=== PATIENT | female | born 1960 | race Caucasian/White ===

== ENCOUNTER 2016-07-09 01:45 | Emergency (ER) | payer MEDICARE, MEDICAID ==
[2016-07-09] MEDS ORDERED: Lidocaine 1% with EPINEPHrine 1:100,000 20 ML MDV INFILT ONE (01:58)
[2016-07-09 03:44] VITALS: BP 126/77
--- NOTE | 2016-07-09 08:08 | ER ---
Date of Service: 07/09/2016 SUBJECTIVE: Aracelis presents to the emergency room after a fall. She is a resident at [facility] here in [place]. She has a history of chronic brain injury and does have difficulties with her gait. Staff states that she tripped and fell backwards striking the back of her head. Staff was unable to get the bleeding stopped. The patient had no loss of consciousness according to [facility] staff. The patient is not complaining of any headache or neck pain. PAST MEDICAL HISTORY: 1. Chronic brain injury. 2. Coronary artery disease. 3. Dyslipidemia. 4. Seizure disorder. 5. Migraine headaches. MEDICATIONS: 1. Trazodone 50 mg at bedtime. 2. Keppra. 3. Zoloft. 4. Imitrex. 5. Felbamate. 6. Aricept. 7. Clopidogrel. 8. Carvedilol. 9. Calcium plus D. 10.Aspirin. ALLERGIES: To carbamazepine and penicillin. REVIEW OF SYSTEMS: General: No fever or chills. HEENT: Again sustained a laceration to the occipital portion of her head. Denies any headache. No blurred vision. She has been experiencing some sinus congestion for several weeks. Respiratory: No shortness of breath. Cardiac: Denies any substernal chest pain. No jaw, arm, neck, or back pain. Gastrointestinal: No nausea, vomiting, or diarrhea. No melena, hematochezia, or hematemesis. : Denies any dysuria. Musculoskeletal: No myalgias or arthralgias. Neurologic: No fainting, blackouts, or lightheadedness. No seizure activity since this event. PHYSICAL EXAMINATION: General: This is a 56-year-old female patient, who is in no acute distress. Vital Signs: Blood pressure is 132/90, pulse rate 52, temperature is 35.5, respiratory rate 16, O2 saturations 100%. Skin: Warm, pink, and dry. HEENT: Head is normocephalic. She does have a 2 cm laceration to the occipital portion of her head. No obvious gross bony deformity underlying the laceration. Eyes, PERRLA. Extraocular movements are intact. No facial trauma noted. She has no discomfort on palpation of her frontal or maxillary sinuses. Spine: No midline C-spine, thoracic, or lumbar discomfort noted on palpation. Lungs: Clear to auscultation. Heart: Regular rate and rhythm. Musculoskeletal: No myalgias or arthralgias. Pelvis: Stable. Extremities: No extremity trauma noted. Neurologic: She is alert and oriented and answers all questions appropriately. Her speech is fluent. She was able to stand and transfer from a wheelchair to the bed and back to her wheelchair. RADIOGRAPHIC DATA: CT scan of the patient's brain and cervical spine were obtained. There was no evidence of any acute posttraumatic pathology. She did have evidence of acute left maxillary sinusitis and evidence of encephalomalacia from her chronic brain injury. No other findings were reported. Similarly, her cervical spine CT scan of was negative for acute pathology as well. EMERGENCY ROOM COURSE: The laceration was cleansed with Shur-Clens and normal saline. The patient's head was prepped and draped in usual sterile fashion. Chlorhexidine was used to further cleanse the laceration and a total of 5 mL of 1% lidocaine with epinephrine was used to anesthetize the laceration. A total of 3 interrupted 4-0 nylon sutures was used to close the laceration. Excellent wound approximation and hemostasis was achieved. The patient tolerated this well. She remained stable in my care in the emergency. ASSESSMENT: 1. A 2 cm laceration to occipital portion of the head status post fall. 2. Possible closed head injury. 3. Acute left maxillary sinusitis. PLAN: The patient will be discharged. Sutures are out in 10 days. Should follow up in the clinic sooner if there is any redness, swelling, or discharge from the laceration site. Also return if she develops increased seizure activity or if she develops any vomiting, difficulties with speech, gait or ambulation or other worrisome focal neurologic symptoms. Begin cefdinir 300 mg p.o. b.i.d. for 10 days for her acute sinusitis. Follow up in the clinic again for suture removal and recheck in 10 days. All questions were answered. CARMENK: 07/09/2016 03:37:06 MODL: 07/09/2016 08:04:49 /[id number]
== END 2016-07-09 03:35 | disposition home or self-care (01) ==
LOC: VM.ED 01:45
DX: S01.01XA Laceration without foreign body of scalp, initial encounter (principal); J01.00 Acute maxillary sinusitis, unspecified; E78.5 Hyperlipidemia, unspecified; G40.909 Epilepsy, unspecified, not intractable, without status epilepticus; Z88.0 Allergy status to penicillin; W19.XXXA Unspecified fall, initial encounter
CPT/HCPCS: 12001; 70450; 72125; 99283-GF-25; 99284

== ENCOUNTER 2016-08-04 11:36 | Emergency (ER) | payer MEDICARE, MEDICAID ==
[2016-08-04 12:00] VITALS: BP 140/94
[2016-08-04] MEDS ORDERED: Sodium Chloride 0.9% 10 ML Syringe FLUSH PRN (12:11)
[2016-08-04 12:56] LABS: CHLORIDE,CL 103 mmol/L (98-107); SODIUM,NA 141 mmol/L (136-145)
[2016-08-04] MEDS ORDERED: cefTRIAXone 2 GM Vial IVPUSH ONE (13:35)
[2016-08-04] MEDS ORDERED: Take Home: Sulfamethoxazole/Trimethoprim 800-160 MG Tab, 2 Tab Pack PO ONE (13:46)
--- NOTE | 2016-08-06 09:10 | ER ---
Date of Service: SUBJECTIVE: Aracelis presents to the emergency room with erythema and swelling to the right hand. The patient has been experiencing this for several days. Staff states the patient has not been experiencing any fever or chills. The patient is a resident at the [facility]. PAST MEDICAL HISTORY: 1. Coronary artery disease. 2. Colon polyp. 3. Early menopause. 4. Previous ankle fracture. 5. Seizure disorder. 6. Depression. MEDICATIONS: 1. Trazodone. 2. Levetiracetam. 3. Zoloft. 4. Imitrex. 5. Felbamate. 6. Aricept. 7. Clopidogrel. 8. Carvedilol. 9. Vitamin D3. 10.Aspirin. ALLERGIES: To carbamazepine and penicillin. REVIEW OF SYSTEMS: Unobtainable due to the patient's mental status. PHYSICAL EXAMINATION: General: This is a 56-year-old female patient, who is in no acute distress. Vital Signs: Please see nurse's notes. Skin: Warm, pink, and dry. Evaluation of the patient's right hand reveals erythema overlying the metacarpophalangeal joints. The second and third metacarpophalangeal joint of the left hand. There is some swelling to the palm of the hand. No obvious discharge noted. No culturable lesions noted. The CBC was not obtained. HOSPITAL COURSE: IV access was established. The patient was given 2 g of Rocephin IM. IV was kept in place, and the patient was setup as an outpatient for repeat dosing of the Rocephin. ASSESSMENT: Cellulitis to right hand. PLAN: The patient was also started on Bactrim DS 1 twice daily for 10 days. Again return in 24 hours for another 2 g of Rocephin. We will evaluate the infection at that time. The cellulitis was outlined in ink. Followup in the clinic in the next 7 to 10 days. All questions were answered. MWK: 08/06/2016 05:49:43 MODL: 08/06/2016 08:51:24 /[id number]
== END 2016-08-04 14:05 ==
LOC: VM.ED 11:36
DX: L03.113 Cellulitis of right upper limb (principal); I25.10 Atherosclerotic heart disease of native coronary artery without angina pectoris; F32.9 Major depressive disorder, single episode, unspecified; Z88.0 Allergy status to penicillin; Z88.8 Allergy status to other drugs, medicaments and biological substances
CPT/HCPCS: 80048; 84550; 85025; 86140; 96374; 99283; A9270; J0696; J7050

== ENCOUNTER 2017-03-01 08:49 | Emergency (ER) | payer MEDICARE, MEDICAID ==
[2017-03-01] MEDS ORDERED: Aspirin 81 MG Tab.Chew PO SCH (09:15)
[2017-03-01] MEDS ORDERED: Sodium Chloride 0.9% 500 ML IV ONE (09:18)
[2017-03-01] MEDS ORDERED: DOPamine/Dextrose 5%-Water 400 MG/250 ML BAG IV SCH (09:30)
--- NOTE | 2017-03-01 09:47 | EDM.PDOC ---
ED HPI GENERAL MEDICAL PROBLEM - General Chief Complaint: Chest Pain Stated Complaint: ER Time Seen by Provider: 03/01/17 08:56 Source of Information: Reports: EMS, [facility] Records (pt is from [facility]) History Limitations: Reports: Altered Mental Status - History of Present Illness INITIAL COMMENTS - FREE TEXT/NARRATIVE: [facility] is noted that she had a seizure yesterday and a seizure this morning. Which is normal for her she's had a seizure disorder and has managed medically by that. She was found to be hypotensive at the [facility]. Arousable he is unknown at this point. They contacted EMS emergent as soon as he could not get an accurate blood pressure. EMS was on scene and was having difficulty palpating an accurate blood pressures well. It was noted that when he transferred her over from her bed to the rney that the patient did go bradycardic and remained hypotensive. Patient is noted also to have had diaphoresis along with pale clammy skin. Twelve-lead EKG was completed by EMS in IV site was administered prior to arrival to our facility. Patient is a DNR times to DO NOT INTUBATE DO NOT RESUSCITATE with defibrillation however they do want medical management medications provided Onset: Today Severity: Severe Associated Symptoms: Reports: No Other Symptoms Treatments DIRECTOR HOME: Reports: EKG - Related Data Allergies Allergy/AdvReac Type Severity Reaction Status Date / Time carbamazepine [From Tegretol] Allergy Cannot Verified 08/04/16 12:02 Remember Penicillins Allergy Cannot Verified 08/04/16 12:02 Remember Home Meds: Home Meds Aspirin [Aspir-Low] 2 tab PO DAILY 10/23/14 [History] Calcium Carbonate/Vitamin D3 [Calcium 600 + D Tablet] 1 each PO DAILY 10/23/14 [ History] Carvedilol [Carvedilol] 0.5 tab PO BID 10/23/14 [History] Clopidogrel Bisulfate [Clopidogrel] 75 mg PO DAILY 10/23/14 [History] Donepezil [Aricept] 5 mg PO BEDTIME 10/23/14 [History] Felbamate [Felbamate] 2.5 tab PO BID 10/23/14 [History] SUMAtriptan [Imitrex] 25 mg PO ASDIRECTED PRN 10/23/14 [History] Sertraline [Zoloft] 200 mg PO DAILY 10/23/14 [History] levETIRAcetam [Levetiracetam] 1,000 mg PO BID 10/23/14 [History] levETIRAcetam [Levetiracetam] 750 mg PO BID 10/23/14 [History] traZODone 50 mg PO BEDTIME 10/23/14 [History] Past Medical History Other HEENT History: presbyopia Cardiovascular History: Reports: CAD, [place] Other Gastrointestinal History: adenomatous colon polyp Other OB/BYN History: early menopause Other Musculoskeletal History: left knee injury, ataxiabimalleolar ankle fracture, spontaneous ruputre of flexor tendon,cellulitis of elbow Neurological History: Reports: Head Trauma, Seizure Other Neuro History: memory loss Psychiatric History: Reports: Depression Social & Family History - Tobacco Use Smoking Status *Q: Unknown Ever Smoked - Recreational Drug Use Recreational Drug Use: No ED ROS GENERAL - Review of Systems Review Of Systems: See Below Constitutional: Reports: No Symptoms HEENT: Reports: No Symptoms Respiratory: Reports: No Symptoms Cardiovascular: Reports: No Symptoms Endocrine: Reports: No Symptoms GI/Abdominal: Reports: No Symptoms : Reports: No Symptoms Musculoskeletal: Reports: No Symptoms Skin: Reports: No Symptoms Neurological: Reports: Seizure (had a seizure last night and again this am lasting last then 2 mins ) Psychiatric: Reports: No Symptoms Hematologic/Lymphatic: Reports: No Symptoms ED EXAM, GENERAL - Physical Exam Exam: See Below Exam Limited By: No Limitations General Appearance: Moderate Distress Head: Atraumatic, Normocephalic Neck: Normal Inspection Respiratory/Chest: No Respiratory Distress, No Accessory Muscle Use, Chest Non- Tender Cardiovascular: Bradycardia, Irregularly Irregular GI/Abdominal: Normal Bowel Sounds, Soft, No Distention, No Abnormal Bruit Back Exam: Normal Inspection Extremities: Pallor Skin Exam: Cool, Pallor EKG INTERPRETATION EKG Date: 03/01/17 Course - Vital Signs Last Recorded V/S: Last Vital Signs Temp 35.6 C 03/01/17 08:49 Pulse 63 03/01/17 09:17 Resp 16 03/01/17 08:49 BP 67/44 L 03/01/17 09:17 Pulse Ox 96 03/01/17 09:17 - Orders/Labs/Meds Orders: Active Orders 24 hr Category Date Time Status EKG Documentation Completion [RC] STAT Care 03/01/17 09:07 Ordered Chest 1V Frontal [CR] Stat Exams 03/01/17 09:10 Ordered CKMB [REF] Stat Lab 03/01/17 09:07 Ordered COMPREHENSIVE METABOLIC PN,CMP [CHEM] Stat Lab 03/01/17 09:07 Ordered D Dimer [D-DIMER QUANTITATIVE] [COAG] Stat Lab 03/01/17 09:10 Ordered TROPONIN I [CHEM] Stat Lab 03/01/17 09:07 Ordered UA W/MICROSCOPIC [URIN] Stat Lab 03/01/17 09:07 Uncollected Aspirin Med 03/01/17 09:15 Active 162 mg PO WITHBREAKFAST DOPamine/Dextrose 5%-Water [DOPamine in D5W 400 MG/250 Med 03/01/17 09:30 Ordered ML] 400 mg in 250 ml IV TITRATE Sodium Chloride 0.9% @ 500 MLS/HR(500ml) Med 03/01/17 09:18 Ordered Sodium Chloride 0.9% [Normal Saline] 500 ml IV ONETIME Medication Orders Aspirin (Aspirin) 162 mg PO WITHBREAKFAST GRACE Last Admin: 03/01/17 09:15 Dose: 162 mg Sodium Chloride (Normal Saline) 500 mls @ 500 mls/hr IV ONETIME ONE Stop: 03/01/17 10:17 Last Admin: 03/01/17 08:49 Dose: 500 mls/hr Dopamine HCl/Dextrose (Dopamine In D5w 400 Mg/250 Ml) 400 mg in 250 mls @ 5.25 mls/hr IV TITRATE GRACE; 2 MCG/KG/MIN PRN Reason: Protocol Last Admin: 03/01/17 09:45 Dose: 2 mcg/kg/min, 5.25 mls/hr Labs: Laboratory Tests 03/01/17 03/01/17 03/01/17 Range/Units 09:25 09:25 09:32 WBC 10.8 H (4.0-10.0) x10^3/uL RBC 3.29 L (4.00-5.50) x10^6/uL Hgb 10.3 L D (12.0-16.0) g/dL Hct 32.8 L (33.0-47.0) % MCV 99.7 H D (78.0-93.0) fL MCH 31.3 (26.0-32.0) pg MCHC 31.4 L (32.0-36.0) g/dL RDW Coeff of Jose 12.1 (10.0-15.0) % Plt Count 207 (130-400) x10^3/uL Add Manual Diff Yes Neutrophils % (Manual) 81 H (50-80) % Band Neutrophils % 6 (0-6) % Lymphocytes % (Manual) 12 L (25-50) % Monocytes % (Manual) 1 L (2-11) % Platelet Estimate Adequate Lactic Acid 3.8 H (0.4-2.0) mmol/L POC Troponin I 0.02 (0.00-0.08) ng/mL Meds: Medications Generic Name Dose Route Start Last Admin Trade Name Freq PRN Reason Stop Dose Admin Aspirin 162 mg 03/01/17 09:15 03/01/17 09:15 Aspirin PO 162 mg WITHBREAKFAST GRACE Administration Sodium Chloride 500 mls @ 500 mls/hr 03/01/17 09:18 03/01/17 08:49 Normal Saline IV 03/01/17 10: 500 mls/hr ONETIME ONE Administration Dopamine HCl/Dextrose 400 mg in 250 mls @ 5.25 mls/hr 03/01/17 09:30 09:45 Dopamine In D5w 400 Mg/250 Ml IV 2 mcg/kg/min TITRATE GRACE 5.25 mls/hr Protocol Administration 2 MCG/KG/MIN Departure - Departure Time of Disposition: 09:50 Disposition: DC/Tfer to Other 70 Condition: Poor Clinical Impression: Bradycardia Hypotension Qualifiers: Hypotension type: unspecified hypotension type Qualified Code(s): I95.9 - Hypotension, unspecified - Discharge Information Referrals: Hussein Bond MD [Primary Care Provider] - Forms: ED Department Discharge, Interfacility Transfer EMTSELAM ED Summary Discharge - My Orders Last 24 Hours: My Active Orders 03/01/17 09:07 EKG Documentation Completion [RC] STAT CKMB [REF] Stat COMPREHENSIVE METABOLIC PN,CMP [CHEM] Stat TROPONIN I [CHEM] Stat UA W/MICROSCOPIC [URIN] Stat 03/01/17 09:10 Chest 1V Frontal [CR] Stat D Dimer [D-DIMER QUANTITATIVE] [COAG] Stat 03/01/17 09:15 Aspirin 162 mg PO WITHBREAKFAST 03/01/17 09:18 Sodium Chloride 0.9% @ 500 MLS/HR(500ml) Sodium Chloride 0.9% [Normal Saline] 500 ml IV ONETIME 03/01/17 09:30 DOPamine/Dextrose 5%-Water [DOPamine in D5W 400 MG/250 ML] 400 mg in 250 ml IV TITRATE - Assessment/Plan Last 24 Hours: My Active Orders 03/01/17 09:07 EKG Documentation Completion [RC] STAT CKMB [REF] Stat COMPREHENSIVE METABOLIC PN,CMP [CHEM] Stat TROPONIN I [CHEM] Stat UA W/MICROSCOPIC [URIN] Stat 03/01/17 09:10 Chest 1V Frontal [CR] Stat D Dimer [D-DIMER QUANTITATIVE] [COAG] Stat 03/01/17 09:15 Aspirin 162 mg PO WITHBREAKFAST 03/01/17 09:18 Sodium Chloride 0.9% @ 500 MLS/HR(500ml) Sodium Chloride 0.9% [Normal Saline] 500 ml IV ONETIME 03/01/17 09:30 DOPamine/Dextrose 5%-Water [DOPamine in D5W 400 MG/250 ML] 400 mg in 250 ml IV TITRATE
[2017-03-01 09:52] VITALS: BP 67/44
[2017-03-01 09:56] LABS: CHLORIDE,CL 109 mmol/L (98-107); SODIUM,NA 145 mmol/L (136-145)
== END 2017-03-01 10:00 | disposition other institution (70) ==
LOC: VM.ED 08:49
DX: I95.9 Hypotension, unspecified (principal); R00.1 Bradycardia, unspecified; Z88.0 Allergy status to penicillin; Z88.8 Allergy status to other drugs, medicaments and biological substances; Z79.82 Long term (current) use of aspirin; Z79.899 Other long term (current) drug therapy
CPT/HCPCS: 36415; 71010; 80053; 82550; 82553; 83605; 84484; 85025; 85379; 93005; 96361; 96374; 99285; A9270; J1265; J7040; 99284-GF

== ENCOUNTER 2017-08-04 12:27 | Observation (INO) | payer MEDICARE, MEDICAID ==
[2017-08-04] MEDS ORDERED: Sodium Chloride 0.9% 10 ML Syringe FLUSH PRN (12:35)
[2017-08-04] MEDS ORDERED: Iopamidol 612 MG/ML 100 ML Bottle IVPUSH ONE (12:59)
[2017-08-04 13:16] LABS: CHLORIDE,CL 104 mmol/L (98-107); SODIUM,NA 140 mmol/L (136-145)
--- NOTE | 2017-08-04 13:38 | EDM.PDOC ---
ED HPI GENERAL MEDICAL PROBLEM - General Chief Complaint: General Stated Complaint: Abd Pain; Left Rib Pain; Diaphoresis; feeling pale Time Seen by Provider: 08/04/17 12:28 Source of Information: Reports: Patient, Family, RN, RN Notes Reviewed History Limitations: Reports: No Limitations - History of Present Illness INITIAL COMMENTS - FREE TEXT/NARRATIVE: Patient is brought to the emergency room at [facility] complaining of fast heart rate, left upper abdominal pain/rib pain, diaphoresis. History is obtained from [facility] staff and from patient. Difficult history as patient and staff accounts seem to differ. Patient was witnessed having diaphoresis and looking pale. staff member took the patients pulse and states "it was going really fast." No chest pain. No SOB. Onset: Today Left Back Pain Score (Numeric/FACES): 10 - Related Data Allergies Allergy/AdvReac Type Severity Reaction Status Date / Time carbamazepine [From Tegretol] Allergy Cannot Verified 08/04/17 13:10 Remember Penicillins Allergy Cannot Verified 08/04/17 13:10 Remember Home Meds: Home Meds Donepezil [Aricept] 5 mg PO BEDTIME 10/23/14 [History] Felbamate 1,500 mg PO BID 10/23/14 [History] Sertraline [Zoloft] 200 mg PO DAILY 10/23/14 [History] levETIRAcetam [Levetiracetam] 2,000 mg PO BEDTIME 10/23/14 [History] traZODone 50 mg PO BEDTIME 10/23/14 [History] Albuterol/Ipratropium [DuoNeb 3.0-0.5 MG/3 ML] 3 ml NEB QID PRN 03/19/17 [ History] Pantoprazole [ProTONIX] 40 mg PO BIDAC 03/19/17 [History] Phenytoin Sodium Extended [Dilantin] 100 mg PO DAILY 03/19/17 [History] Sennosides/Docusate Sodium [Senna-Docusate Sodium] 1 tab PO BID 03/19/17 [ History] levETIRAcetam [Levetiracetam] 1,750 mg PO DAILY 03/19/17 [History] Acetaminophen 650 mg PO Q4H PRN 04/23/17 [History] Aspirin [Halfprin] 81 mg PO DAILY 04/23/17 [History] Bisacodyl 10 mg RC DAILY PRN 04/23/17 [History] Calcium Carbonate/Vitamin D3 [Calcium 600 + Vit D 400 Softgl] 1 each PO DAILY [History] Carvedilol 3.125 mg PO BID 04/23/17 [History] Potassium Chloride [Klor-Con M20] 20 meq PO DAILY 04/23/17 [History] Aspirin [Halfprin] 81 mg PO DAILY 08/04/17 [History] Past Medical History HEENT History: Reports: Cataract, Other (See Below) Other HEENT History: presbyopia, entropion eyelid, myopia Cardiovascular History: Reports: CAD, [place] Gastrointestinal History: Reports: Other (See Below) Other Gastrointestinal History: liver failure, adenomatous colon polyp Genitourinary History: Reports: Other (See Below) Other Genitourinary History: renal injury Other OB/BYN History: early menopause Musculoskeletal History: Reports: Other (See Below) Other Musculoskeletal History: left knee injury, ataxia, bimalleolar ankle fracture, spontaneous ruputre of flexor tendon,cellulitis of elbow, osteopenia Neurological History: Reports: Head Trauma, Migraines, Seizure Other Neuro History: memory loss Psychiatric History: Reports: Depression - Past Surgical History HEENT Surgical History: Reports: Other (See Below) Other HEENT Surgeries/Procedures: ecteopion entropion Cardiovascular Surgical History: Reports: Other (See Below) Other Cardiovascular Surgeries/Procedures: percutaneous coronary intervention cath GI Surgical History: Reports: None Female Surgical History: Reports: None Musculoskeletal Surgical History: Reports: Other (See Below) Other Musculoskeletal Surgeries/Procedures:: fx repair, ligament repair Social & Family History - Family History Family Medical History: Noncontributory - Tobacco Use Smoking Status *Q: Never Smoker Second Hand Smoke Exposure: No - Caffeine Use Caffeine Use: Reports: Coffee - Recreational Drug Use Recreational Drug Use: No ED ROS GENERAL - Review of Systems Review Of Systems: See Below Constitutional: Reports: Diaphoresis. Denies: Fever, Chills Respiratory: Denies: Shortness of Breath, Cough Cardiovascular: Denies: Chest Pain, Palpitations GI/Abdominal: Reports: Abdominal Pain. Denies: Diarrhea, Nausea, Vomiting Musculoskeletal: Reports: Muscle Pain (Left lateral rib pain) Skin: Reports: No Symptoms Neurological: Reports: No Symptoms ED EXAM, GENERAL - Physical Exam Exam: See Below Exam Limited By: No Limitations General Appearance: Alert, No Apparent Distress Respiratory/Chest: No Respiratory Distress, Lungs Clear, Normal Breath Sounds Cardiovascular: No Edema, No Murmur, Tachycardia Peripheral Pulses: 2+: Radial (L), Radial (R) GI/Abdominal: Soft, Tender (LUQ), Abnormal Bowel Sounds (Hypoactive) Back Exam: Normal Inspection Neurological: Alert Skin Exam: Warm, Dry, Intact, Normal Color Course - Vital Signs Last Recorded V/S: Last Vital Signs Temp 35.7 C 08/04/17 12:30 Pulse 96 08/04/17 12:30 Resp 20 08/04/17 12:30 BP 109/79 08/04/17 12:30 Pulse Ox 100 08/04/17 12:30 - Orders/Labs/Meds Orders: Active Orders 24 hr Category Date Time Status Admission Status [Patient Status] [ADT] Routine ADT 08/04/17 13:57 Ordered EKG 12 Lead [EKG Documentation Completion] [RC] STAT Care 08/04/17 12:33 Active Chest Abdomen Pelvis w Cont [CT] Stat Exams 08/04/17 12:35 Taken UA W/MICROSCOPIC [URIN] Stat Lab 08/04/17 12:34 Received Sodium Chloride 0.9% [Saline Flush] Med 08/04/17 12:35 Active 10 ml FLUSH ASDIRECTED PRN Peripheral IV Insertion Adult [OM.PC] Routine Oth 08/04/17 12:35 Ordered Medication Orders Sodium Chloride (Saline Flush) 10 ml FLUSH ASDIRECTED PRN PRN Reason: Keep Vein Open Labs: Laboratory Tests 08/04/17 08/04/17 08/04/17 Range/Units 12:45 12:45 12:45 WBC 3.9 L (4.0-10.0) x10^3/uL RBC 4.59 (4.00-5.50) x10^6/uL Hgb 11.6 L D (12.0-16.0) g/dL Hct 37.7 (33.0-47.0) % MCV 82.1 (78.0-93.0) fL MCH 25.3 L (26.0-32.0) pg MCHC 30.8 L (32.0-36.0) g/dL RDW Coeff of Jose 19.1 H (10.0-15.0) % Plt Count 441 H D (130-400) x10^3/uL Add Manual Diff Yes Neutrophils % (Manual) 63 (50-80) % Lymphocytes % (Manual) 23 L (25-50) % Monocytes % (Manual) 13 H (2-11) % Basophils % (Manual) 1 (0-1) % Dohle Bodies Few Platelet Estimate Increased H Giant Platelets Occasional H Anisocytosis 3+ marked H Microcytosis 1+ slight H Sodium 140 (136-145) mmol/L Potassium 4.3 (3.5-5.1) mmol/L Chloride 104 (98-107) mmol/L Carbon Dioxide 27 (21-32) mmol/L BUN 19 H (7-18) mg/dL Creatinine 0.8 (0.55-1.02) mg/dL Est Cr Clr Drug Dosing 66.19 mL/min Estimated GFR (MDRD) > 60 Glucose 141 H (74-106) mg/dL Lactic Acid 1.3 (0.4-2.0) mmol/L Calcium 8.7 (8.5-10.1) mg/dL Corrected Calcium 9.18 (8.5-10.1) mg/dL Total Bilirubin 0.4 (0.2-1.0) mg/dL AST 24 (15-37) U/L ALT 23 (14-59) U/L Alkaline Phosphatase 165 H (46-116) U/L Creatine Kinase 31 (26-192) U/L Troponin I 0.027 (<=0.056) ng/mL C-Reactive Protein 0.9 (<=0.9) mg/dL Total Protein 7.6 (6.4-8.2) g/dL Albumin 3.4 (3.4-5.0) g/dL Globulin 4.2 Albumin/Globulin Ratio 0.81 Amylase 57 (25-115) U/L Lipase 162 (73-393) U/L Meds: Medications Generic Name Dose Route Start Last Admin Trade Name Freq PRN Reason Stop Dose Admin Sodium Chloride 10 ml 08/04/17 12:35 Saline Flush FLUSH ASDIRECTED PRN Keep Vein Open Discontinued Medications Generic Name Dose Route Start Last Admin Trade Name Freq PRN Reason Stop Dose Admin Iopamidol 100 ml 08/04/17 12:59 08/04/17 13:41 Isovue-300 (61%) IVPUSH 08/04/17 13:00 100 ml ONETIME ONE Administration Departure - Departure Time of Disposition: 14:00 Disposition: Refer to Observation Condition: Good Clinical Impression: Tachycardia, Dehydration Abdominal pain Qualifiers: Abdominal location: left upper quadrant Qualified Code(s): R10.12 - Left upper quadrant pain - Discharge Information - Problem List Review Problem List Initiated/Reviewed/Updated: Yes - My Orders Last 24 Hours: My Active Orders 08/04/17 12:33 EKG 12 Lead [EKG Documentation Completion] [RC] STAT 08/04/17 12:34 UA W/MICROSCOPIC [URIN] Stat 08/04/17 12:35 Chest Abdomen Pelvis w Cont [CT] Stat Sodium Chloride 0.9% [Saline Flush] 10 ml FLUSH ASDIRECTED PRN Peripheral IV Insertion Adult [OM.PC] Routine 08/04/17 13:57 Admission Status [Patient Status] [ADT] Routine - Assessment/Plan Last 24 Hours: My Active Orders 08/04/17 12:33 EKG 12 Lead [EKG Documentation Completion] [RC] STAT 08/04/17 12:34 UA W/MICROSCOPIC [URIN] Stat 08/04/17 12:35 Chest Abdomen Pelvis w Cont [CT] Stat Sodium Chloride 0.9% [Saline Flush] 10 ml FLUSH ASDIRECTED PRN Peripheral IV Insertion Adult [OM.PC] Routine 08/04/17 13:57 Admission Status [Patient Status] [ADT] Routine Assessment:: Tachycardia Abdominal Pain Dehydration Plan: Patient will be admitted to the observation unit for tachycardia, abdominal pain , dehydration. I do not anticipate the patient will stay greater than 48 hours. I would like to just observe the patient to make sure that her cardiac rhythm is okay. I do anticipate a discharge home tomorrow. Awaiting CT results at the time of this admission.
[2017-08-04] MEDS: Lactated Ringers 1,000 ML IV SCH (15:05)
[2017-08-04] MEDS ORDERED: Albuterol/Ipratropium 3.0-0.5 MG/3 ML Neb Soln INH PRN (17:30)
[2017-08-04] MEDS: FELBAMATE 600 MG PO SCH (19:49)
[2017-08-04] MEDS ORDERED: Phenytoin 100 MG Cap.ER PO SCH (20:00)
[2017-08-04] MEDS ORDERED: levETIRAcetam 500 MG Tab PO SCH (20:00)
[2017-08-04] MEDS ORDERED: Donepezil 5 MG Tab PO SCH (20:00)
[2017-08-04] MEDS ORDERED: traZODone 50 MG Tab PO SCH (20:00)
[2017-08-05] MEDS: Lactated Ringers 1,000 ML IV SCH (01:03)
[2017-08-05] MEDS ORDERED: Pantoprazole 40 MG Tab.CR PO SCH (07:00)
[2017-08-05 07:18] LABS: CHLORIDE,CL 106 mmol/L (98-107); SODIUM,NA 142 mmol/L (136-145)
[2017-08-05] MEDS: FELBAMATE 600 MG PO SCH (07:24)
--- NOTE | 2017-08-05 07:38 | PCM.DCSUM1 ---
Discharge Summary - Hospital Course HPI Initial Comments: Patient is brought to the emergency room at [facility] last evening complaining of fast heart rate, left upper abdominal pain/rib pain, diaphoresis. History is obtained from Retirement staff and from patient. Difficult history as patient and staff accounts seem to differ. Patient was witnessed having diaphoresis and looking pale. staff member took the patients pulse and states "it was going really fast." No chest pain. No SOB. Patient underwent a CT of the Chest, Abd/Pelvis, which was unremarkable for any acute pathology. Patient was admitted for cardiac monitoring for any arrhythmias. - Discharge Data Discharge Date: 08/05/17 Discharge Disposition: Home, Self-Care 01 Condition: Good - Patient Summary/Data Operative Procedure(s) Performed: None Consults: None Labs Pending at D/C: None Recommended Follow-up Testing/Procedures: None Hospital Course: Patient remained hemodynamically stable during her hospital stay. Telemetry remained stable with out any tachycardia or arrhythmia's. No issues with urination or BM's. Patient tolerating diet ok. No pain at discharge. - Patient Instructions Diet: Heart Healthy Diet Activity: Rest and Relax Today Driving: Do Not Drive Showering/Bathing: May Shower Notify Provider of: Fever, Increased Pain, Nausea and/or Vomiting - Discharge Plan Home Medications: Home Meds Donepezil [Aricept] 5 mg PO BEDTIME 10/23/14 [History] Felbamate 1,500 mg PO BID 10/23/14 [History] Sertraline [Zoloft] 2 tab PO DAILY 10/23/14 [History] traZODone 50 mg PO BEDTIME 10/23/14 [History] Albuterol/Ipratropium [DuoNeb 3.0-0.5 MG/3 ML] 3 ml NEB QID PRN 03/19/17 [ History] Pantoprazole [ProTONIX] 40 mg PO BIDAC 03/19/17 [History] Phenytoin Sodium Extended [Dilantin] 100 mg PO BEDTIME 03/19/17 [History] Sennosides/Docusate Sodium [Senna-Docusate Sodium] 1 tab PO BID 03/19/17 [ History] Calcium Carbonate/Vitamin D3 [Calcium 600 + Vit D 400 Softgl] 1 each PO DAILY [History] Potassium Chloride [Klor-Con M20] 20 meq PO DAILY 04/23/17 [History] Aspirin [Halfprin] 81 mg PO DAILY 08/04/17 [History] Carvedilol 1 tab PO DAILY 08/04/17 [History] levETIRAcetam [Keppra] 1 tab PO DAILY 08/04/17 [History] levETIRAcetam [Keppra] 1 tab PO DAILY 08/04/17 [History] levETIRAcetam [Keppra] 2 tab PO BEDTIME 08/04/17 [History] Patient Handouts: Sinus Tachycardia Referrals: Hussein Bond MD [Primary Care Provider] - - Discharge Summary/Plan Comment DC Time >30 min.: No Discharge Summary/Plan Comment: Patient will be discharged back to the custodial today. Patient hemodynamically stable at time of discharge. No change with home medications. Recommend a follow up with PCP in the next week for a recheck. - General Info Date of Service: 08/05/17 Admission Dx/Problem (Free Text: Sinus Tachycardia Dehydration Subjective Update: Patient offers no specific complaints. She states she is "doing ok." Functional Status: Reports: Pain Controlled, Tolerating Diet, Ambulating, Urinating Numeric/FACES Score: 0 - Review of Systems General: Denies: Fever, Weakness, Chills Pulmonary: Denies: Shortness of Breath, Sputum Cardiovascular: Denies: Chest Pain, Palpitations Gastrointestinal: Denies: Abdominal Pain, Nausea, Vomiting Skin: Denies: No Symptoms Neurological: Denies: No Symptoms, Dizziness, Headache - Patient Data Vitals - Most Recent: Last Vital Signs Temp 36.6 C 08/05/17 06:00 Pulse 83 08/05/17 07:23 Resp 18 08/05/17 06:00 BP 113/76 08/05/17 07:23 Pulse Ox 96 08/05/17 06:00 Weight - Most Recent: 61.802 kg I&O - Last 24 hours: Intake & Output 08/04/17 08/05/17 08/05/17 22:59 06:59 14:59 Intake Total 200 1450 Output Total 200 500 Balance 0 950 Lab Results - Last 24 hrs: Laboratory Results - last 24 hr 08/05/17 08/05/17 Range/Units 06:55 06:55 WBC 4.9 (4.0-10.0) x10^3/uL RBC 4.40 (4.00-5.50) x10^6/uL Hgb 11.2 L (12.0-16.0) g/dL Hct 36.2 (33.0-47.0) % MCV 82.3 (78.0-93.0) fL MCH 25.5 L (26.0-32.0) pg MCHC 30.9 L (32.0-36.0) g/dL RDW Coeff of Jose 19.2 H (10.0-15.0) % Plt Count 422 H (130-400) x10^3/uL Add Manual Diff Yes Neutrophils % (Manual) 43 L (50-80) % Band Neutrophils % 9 H (0-6) % Lymphocytes % (Manual) 48 (25-50) % Anisocytosis 2+ moderate H Target Cells Occasional Sodium 142 (136-145) mmol/L Potassium 4.1 (3.5-5.1) mmol/L Chloride 106 (98-107) mmol/L Carbon Dioxide 29 (21-32) mmol/L BUN 13 (7-18) mg/dL Creatinine 0.8 (0.55-1.02) mg/dL Est Cr Clr Drug Dosing 66.19 mL/min Estimated GFR (MDRD) > 60 Glucose 95 (74-106) mg/dL Calcium 8.7 (8.5-10.1) mg/dL Med Orders - Current: Current Medications Albuterol/Ipratropium (Duoneb 3.0-0.5 Mg/3 Ml) 3 ml INH QID PRN PRN Reason: Dyspnea Aspirin (Halfprin) 81 mg PO DAILY [facility] Last Admin: 08/05/17 07:22 Dose: 81 mg Carvedilol (Coreg) 3.125 mg PO DAILY [facility] Last Admin: 08/05/17 07:23 Dose: 3.125 mg Donepezil HCl (Aricept) 5 mg PO BEDTIME [facility] Last Admin: 08/04/17 19:49 Dose: 5 mg Lactated Ringer's (Ringers, Lactated) 1,000 mls @ 100 mls/hr IV ASDIRECTED [facility] Last Admin: 08/05/17 01:03 Dose: 100 mls/hr Levetiracetam (Keppra) 2,000 mg PO BEDTIME [facility] Last Admin: 08/04/17 19:49 Dose: 2,000 mg Levetiracetam (Keppra) 1,750 mg PO DAILY [facility] Last Admin: 08/05/17 07:22 Dose: 1,750 mg Felbamate 600 Mg (Own Med) 0 mg PO BID [facility] Last Admin: 08/05/17 07:24 Dose: 1,500 mg Pantoprazole Sodium (Protonix) 40 mg PO BIDAC [facility] Last Admin: 08/05/17 06:19 Dose: 40 mg Phenytoin Sodium (Phenytoin) 100 mg PO BEDTIME [facility] Last Admin: 08/04/17 19:49 Dose: 100 mg Potassium Chloride (Klor-Con M20) 20 meq PO DAILY [facility] Last Admin: 08/05/17 07:23 Dose: 20 meq Sertraline HCl (Zoloft) 200 mg PO DAILY [facility] Last Admin: 08/05/17 07:22 Dose: 200 mg Sodium Chloride (Saline Flush) 10 ml FLUSH ASDIRECTED PRN PRN Reason: Keep Vein Open Trazodone HCl (Trazodone) 50 mg PO BEDTIME [facility] Last Admin: 08/04/17 19:49 Dose: 50 mg Discontinued Medications Iopamidol (Isovue-300 (61%)) 100 ml IVPUSH ONETIME ONE Stop: 08/04/17 13:00 Last Admin: 08/04/17 13:41 Dose: 100 ml Non-Formulary Medication (Levetiracetam [Keppra]) 1 tab PO DAILY [facility] - Exam General: Reports: Alert, Cooperative, No Acute Distress Lungs: Reports: Clear to Auscultation, Normal Respiratory Effort Cardiovascular: Reports: Regular Rate, Regular Rhythm, No Murmurs GI/Abdominal Exam: Normal Bowel Sounds, Soft, Non-Tender Skin: Reports: Warm, Dry, Intact Neurological: Reports: No New Focal Deficit *Q Meaningful Use (DIS) - VTE *Q VTE Criteria *Q: VTE Mechanical Contraindications *Q: At Risk for Falls - Stroke *Q Stroke Criteria *Q: - AMI *Q AMI Criteria *Q:
[2017-08-05] MEDS ORDERED: levETIRAcetam 500 MG Tab PO SCH (08:00)
[2017-08-05] MEDS ORDERED: LEVETIRACETAM PO SCH (08:00)
[2017-08-05] MEDS ORDERED: Carvedilol 3.125 MG Tab PO SCH (08:00)
[2017-08-05] MEDS ORDERED: Aspirin 81 MG Tab.EC PO SCH (08:00)
[2017-08-05] MEDS ORDERED: Potassium Chloride 20 MEQ Tab.ER PO SCH (08:00)
[2017-08-05] MEDS ORDERED: Sertraline 100 MG Tab PO SCH (08:00)
[2017-08-05 10:36] VITALS: BP 92/63
== END 2017-08-05 13:35 | disposition home or self-care (01) ==
LOC: VM.ED 12:27 → VM.MS 13:57
PROVIDERS: ADMIT Nurse Practitioner Family; ATTEND Nurse Practitioner Family
DX: R00.0 Tachycardia, unspecified (principal); R10.12 Left upper quadrant pain; R61 Generalized hyperhidrosis; E86.0 Dehydration; I25.10 Atherosclerotic heart disease of native coronary artery without angina pectoris; I25.2 Old myocardial infarction; F32.9 Major depressive disorder, single episode, unspecified; Z79.82 Long term (current) use of aspirin; Z79.899 Other long term (current) drug therapy; Z88.0 Allergy status to penicillin; Z88.8 Allergy status to other drugs, medicaments and biological substances
CPT/HCPCS: 36415; 71260; 74177; 80048; 80053; 81001; 82150; 82550; 83605; 83690; 84484; 85025; 86140; 93005; 94760; 99284; 99285; A9270; J7120; Q9967; 96360; 96361; 99217; 99220; G0378

== ENCOUNTER 2017-10-07 08:56 | Emergency (ER) | payer MEDICARE, MEDICAID ==
[2017-10-07 09:33] VITALS: BP 104/73
--- NOTE | 2017-10-07 10:24 | EDM.PDOC ---
ED HPI GENERAL MEDICAL PROBLEM - General Chief Complaint: Head Injury Stated Complaint: SWOLLEN LEFT EYE Time Seen by Provider: 10/07/17 09:01 Source of Information: Reports: Patient, Other (intensive care specialist) History Limitations: Reports: No Limitations - History of Present Illness INITIAL COMMENTS - FREE TEXT/NARRATIVE: Patient is a resident of [facility]. History of anoxic brain injury. She was seen on her knees last night at approximately 0100. She has a large hematoma under her left eye and pain with walking to her left knee. It is reported to be swollen. Her care provider is here with her. No complaints of headache, chest pain, shortness of breath, or pain at other locations. They were concerned due to the increased size of the hematoma. She does tell me she had a prior repair of her ACL many years ago. Onset Date: 10/07/17 Onset Time: 01:00 Duration: Getting Worse Location: Reports: Face, Lower Extremity, Left Severity: Mild Improves with: Reports: None Worsens with: Reports: None Associated Symptoms: Reports: No Other Symptoms - Related Data Allergies Allergy/AdvReac Type Severity Reaction Status Date / Time carbamazepine [From Tegretol] Allergy Cannot Verified 10/07/17 09:35 Remember Penicillins Allergy Cannot Verified 10/07/17 09:35 Remember Home Meds: Home Meds Donepezil [Aricept] 5 mg PO BEDTIME 10/23/14 [History] Felbamate 1,500 mg PO BID 10/23/14 [History] Sertraline [Zoloft] 2 tab PO DAILY 10/23/14 [History] traZODone 50 mg PO BEDTIME 10/23/14 [History] Albuterol/Ipratropium [DuoNeb 3.0-0.5 MG/3 ML] 3 ml NEB QID PRN 03/19/17 [ History] Pantoprazole [ProTONIX] 40 mg PO BIDAC 03/19/17 [History] Phenytoin Sodium Extended [Dilantin] 100 mg PO BEDTIME 03/19/17 [History] Sennosides/Docusate Sodium [Senna-Docusate Sodium] 1 tab PO BID 03/19/17 [ History] Calcium Carbonate/Vitamin D3 [Calcium 600 + Vit D 400 Softgl] 1 each PO DAILY [History] Potassium Chloride [Klor-Con M20] 20 meq PO DAILY 04/23/17 [History] Aspirin [Halfprin] 81 mg PO DAILY 08/04/17 [History] Carvedilol 1 tab PO DAILY 08/04/17 [History] levETIRAcetam [Keppra] 1 tab PO DAILY 08/04/17 [History] levETIRAcetam [Keppra] 1 tab PO DAILY 08/04/17 [History] levETIRAcetam [Keppra] 2 tab PO BEDTIME 08/04/17 [History] Past Medical History HEENT History: Reports: Cataract, Other (See Below) Other HEENT History: presbyopia, entropion eyelid, myopia Cardiovascular History: Reports: CAD, SC Gastrointestinal History: Reports: Other (See Below) Other Gastrointestinal History: liver failure, adenomatous colon polyp Genitourinary History: Reports: Other (See Below) Other Genitourinary History: renal injury Other OB/BYN History: early menopause Musculoskeletal History: Reports: Other (See Below) Other Musculoskeletal History: left knee injury, ataxia, bimalleolar ankle fracture, spontaneous ruputre of flexor tendon,cellulitis of elbow, osteopenia Neurological History: Reports: Head Trauma, Migraines, Seizure Other Neuro History: memory loss Psychiatric History: Reports: Depression - Past Surgical History HEENT Surgical History: Reports: Other (See Below) Other HEENT Surgeries/Procedures: ecteopion entropion Cardiovascular Surgical History: Reports: Other (See Below) Other Cardiovascular Surgeries/Procedures: percutaneous coronary intervention cath GI Surgical History: Reports: None Female Surgical History: Reports: None Musculoskeletal Surgical History: Reports: Other (See Below) Other Musculoskeletal Surgeries/Procedures:: fx repair, ligament repair Social & Family History - Family History Family Medical History: Noncontributory - Tobacco Use Smoking Status *Q: Unknown Ever Smoked - Caffeine Use Caffeine Use: Reports: Coffee, Soda ED ROS GENERAL - Review of Systems Review Of Systems: See Below Constitutional: Reports: No Symptoms HEENT: Reports: No Symptoms Respiratory: Reports: No Symptoms Cardiovascular: Reports: No Symptoms Endocrine: Reports: No Symptoms GI/Abdominal: Reports: No Symptoms : Reports: No Symptoms Musculoskeletal: Reports: Joint Pain (left knee pain) Skin: Reports: Bruising Neurological: Reports: No Symptoms Psychiatric: Reports: No Symptoms Hematologic/Lymphatic: Reports: No Symptoms Immunologic: Reports: No Symptoms ED EXAM, HEAD INJURY - Physical Exam Exam: See Below Exam Limited By: No Limitations General Appearance: Alert, WD/WN, No Apparent Distress Head: Facial Ecchymosis (large hematoma and ecchymosis under left eye). No: Facial Swelling, Sinus Tenderness, Raccoon Eyes Eyes: Bilateral Eye: EOMI, PERRL Ears: Normal TMs Nose: Normal Inspection, Normal Mucousa, No Blood Throat/Mouth: Normal Inspection, Normal Lips, Normal Teeth, Normal Gums, Normal Oropharynx, Normal Voice, No Airway Compromise Neck: Non-Tender, Full Range of Motion, Normal Alignment, Normal Inspection Respiratory: No Respiratory Distress, Lungs Clear, Normal Breath Sounds, No Accessory Muscle Use, Chest Non-Tender Cardiovascular: Normal Peripheral Pulses, Regular Rate, Rhythm, No Edema, No Gallop, No JVD, No Murmur, No Rub GI/Abdominal Exam: Normal Bowel Sounds, Soft, Non-Tender, No Organomegaly, No Distention, No Abnormal Bruit, No Mass Back Exam: Full Range of Motion, Normal Inspection, NT Extremities: No Pedal Edema, Normal Capillary Refill, Leg Pain, Limited Range of Motion (left knee does have some pain and reduced ROM) 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 nml As Tested, No Motor/Sensory Deficits, Alert, Normal Mood/Affect, Oriented x 3 Skin: Ecchymosis (left eye, left knee) Course - Vital Signs Last Recorded V/S: Last Vital Signs Temp 36.3 C 10/07/17 09:00 Pulse 103 H 10/07/17 09:00 Resp 18 10/07/17 09:00 BP 104/73 10/07/17 09:00 Pulse Ox 97 10/07/17 09:00 - Orders/Labs/Meds Orders: Active Orders 24 hr Category Date Time Status Knee 1V or 2V Lt [CR] Stat Exams 10/07/17 09:23 Taken Maxillofacial w/o CM [Max Facial Sinus wo Cont] [CT] Exams 10/07/17 09:23 Taken Stat - Re-Assessments/Exams Free Text/Narrative Re-Assessment/Exam: 10/07/17 12:50 Ct results reviewed. They are negative for acute head injury. Knee x-ray negative. Departure - Departure Time of Disposition: 10:34 Disposition: Home, Self-Care 01 Condition: Good Clinical Impression: Traumatic ecchymosis of face Qualifiers: Encounter type: initial encounter Qualified Code(s): S00.83XA - Contusion of other part of head, initial encounter Left knee pain Qualifiers: Chronicity: acute Qualified Code(s): M25.562 - Pain in left knee - Discharge Information Instructions: Knee Pain, Adult, Facial or Scalp Contusion, [id number] Referrals: Hussein Bond MD [Primary Care Provider] - Forms: ED Department Discharge Additional Instructions: Make sure to follow up with Dr. Bond either this week or next. If your knee does not get better, you may need and MRI to rule out torn ligaments as the source of pain. Make sure to use ice on your eye and alternate ice with heat to your knee. Elevate your knee on pillows as well. This will also help reduce swelling. Please use tylenol and ibuprofen as needed for pain. You can also try a topical analgesic like icy/hot for pain as well. Please call us if you have any other questions or concerns. - Problem List & Annotations (1) Left knee pain SNOMED Code(s): 57807224 Code(s): M25.562 - PAIN IN LEFT KNEE Status: Acute Priority: Low Qualifiers: Chronicity: acute Qualified Code(s): M25.562 - Pain in left knee (2) Traumatic ecchymosis of face SNOMED Code(s): 738458755 Code(s): S00.83XA - CONTUSION OF OTHER PART OF HEAD, INITIAL ENCOUNTER Status: Acute Priority: Low Qualifiers: Encounter type: initial encounter Qualified Code(s): S00.83XA - Contusion of other part of head, initial encounter - Problem List Review Problem List Initiated/Reviewed/Updated: Yes - My Orders Last 24 Hours: My Active Orders 10/07/17 09:23 Knee 1V or 2V Lt [CR] Stat Maxillofacial w/o CM [Max Facial Sinus wo Cont] [CT] Stat - Assessment/Plan Last 24 Hours: My Active Orders 10/07/17 09:23 Knee 1V or 2V Lt [CR] Stat Maxillofacial w/o CM [Max Facial Sinus wo Cont] [CT] Stat Assessment:: left eye hematoma left knee pain Plan: Make sure to follow up with Dr. Bond either this week or next. If your knee does not get better, you may need and MRI to rule out torn ligaments as the source of pain. Make sure to use ice on your eye and alternate ice with heat to your knee. Elevate your knee on pillows as well. This will also help reduce swelling. Please use tylenol and ibuprofen as needed for pain. You can also try a topical analgesic like icy/hot for pain as well. Please call us if you have any other questions or concerns.
== END 2017-10-07 10:43 | disposition home or self-care (01) ==
LOC: VM.ED 08:56
DX: S05.12XA Contusion of eyeball and orbital tissues, left eye, initial encounter (principal); S80.02XA Contusion of left knee, initial encounter; F32.9 Major depressive disorder, single episode, unspecified; Z88.0 Allergy status to penicillin; Z88.8 Allergy status to other drugs, medicaments and biological substances; Z79.899 Other long term (current) drug therapy; Z79.82 Long term (current) use of aspirin; X58.XXXA Exposure to other specified factors, initial encounter
CPT/HCPCS: 70486; 73560-LT; 99283-GF; 99284

== ENCOUNTER 2018-06-05 10:02 | Emergency (ER) | payer MEDICARE, MEDICAID ==
[2018-06-05] MEDS ORDERED: Sodium Chloride 0.9% 1,000 ML IV ONE (10:08)
[2018-06-05 10:45] VITALS: BP 95/67
[2018-06-05 11:00] LABS: CHLORIDE,CL 105 mmol/L (98-107); SODIUM,NA 142 mmol/L (136-145)
[2018-06-05 11:01] LABS: ANION GAP 11.4 mmol/L (10-20)
--- NOTE | 2018-06-05 12:42 | EDM.PDOC ---
ED HPI GENERAL MEDICAL PROBLEM - General Chief Complaint: Syncope Stated Complaint: fainting Time Seen by Provider: 06/05/18 10:07 Source of Information: Reports: Patient, EMS History Limitations: Reports: No Limitations, Other (patient does have some mental disability and is not 100% accurate. History taken with staff and family member present) - History of Present Illness INITIAL COMMENTS - FREE TEXT/NARRATIVE: Patient arrives via EMS with complaints of loss of consciousness for up to 30 seconds. She does have a history of seizures. Observers state she was unresponsive and this did not appear to be a usual seizure for her. She is not post ictal, nor is she confused post episode. She denies hitting her head, no headache, no muscle or extremity pain, no bony malformation, no chest pain, SOB , confusion, abdominal pain, blood in urine or stool. Onset: Today, Sudden Location: Reports: Generalized Associated Symptoms: Reports: Diaphoresis - Related Data Allergies Allergy/AdvReac Type Severity Reaction Status Date / Time carbamazepine [From Tegretol] Allergy Cannot Verified 10/07/17 09:35 Remember Penicillins Allergy Cannot Verified 10/07/17 09:35 Remember Home Meds: Home Meds Donepezil [Aricept] 5 mg PO BEDTIME 10/23/14 [History] Felbamate 1,500 mg PO BID 10/23/14 [History] Sertraline [Zoloft] 2 tab PO DAILY 10/23/14 [History] traZODone 50 mg PO BEDTIME 10/23/14 [History] Albuterol/Ipratropium [DuoNeb 3.0-0.5 MG/3 ML] 3 ml NEB QID PRN 03/19/17 [ History] Pantoprazole [ProTONIX] 40 mg PO BIDAC 03/19/17 [History] Phenytoin Sodium Extended [Dilantin] 100 mg PO BEDTIME 03/19/17 [History] Sennosides/Docusate Sodium [Senna-Docusate Sodium] 1 tab PO BID 03/19/17 [ History] Calcium Carbonate/Vitamin D3 [Calcium 600 + Vit D 400 Softgl] 1 each PO DAILY [History] Potassium Chloride [Klor-Con M20] 20 meq PO DAILY 04/23/17 [History] Aspirin [Halfprin] 81 mg PO DAILY 08/04/17 [History] Carvedilol 1 tab PO DAILY 08/04/17 [History] levETIRAcetam [Keppra] 1 tab PO DAILY 08/04/17 [History] levETIRAcetam [Keppra] 1 tab PO DAILY 08/04/17 [History] levETIRAcetam [Keppra] 2 tab PO BEDTIME 08/04/17 [History] Past Medical History - Past Health History Medical/Surgical History: Denies Medical/Surgical History HEENT History: Reports: Cataract, Other (See Below) Other HEENT History: presbyopia, entropion eyelid, myopia Cardiovascular History: Reports: CAD, [place] Gastrointestinal History: Reports: Other (See Below) Other Gastrointestinal History: liver failure, adenomatous colon polyp Genitourinary History: Reports: Other (See Below) Other Genitourinary History: renal injury 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 Musculoskeletal History: Reports: Other (See Below) Other Musculoskeletal History: left knee injury, ataxia, bimalleolar ankle fracture, spontaneous ruputre of flexor tendon,cellulitis of elbow, osteopenia Neurological History: Reports: Head Trauma, Migraines, Seizure Other Neuro History: memory loss Psychiatric History: Reports: Depression - Past Surgical History HEENT Surgical History: Reports: Other (See Below) Other HEENT Surgeries/Procedures: ecteopion entropion Cardiovascular Surgical History: Reports: Other (See Below) Other Cardiovascular Surgeries/Procedures: percutaneous coronary intervention cath GI Surgical History: Reports: None Female Surgical History: Reports: None Musculoskeletal Surgical History: Reports: Other (See Below) Other Musculoskeletal Surgeries/Procedures:: fx repair, ligament repair Social & Family History - Family History Family Medical History: Noncontributory - Tobacco Use Smoking Status *Q: Never Smoker Second Hand Smoke Exposure: No - Caffeine Use Caffeine Use: Reports: None - Recreational Drug Use Recreational Drug Use: No ED ROS GENERAL - Review of Systems Review Of Systems: See Below Constitutional: Reports: Diaphoresis HEENT: Reports: No Symptoms Respiratory: Reports: No Symptoms Cardiovascular: Reports: No Symptoms Endocrine: Reports: No Symptoms GI/Abdominal: Reports: No Symptoms : Reports: No Symptoms Musculoskeletal: Reports: No Symptoms Skin: Reports: No Symptoms Neurological: Reports: No Symptoms, Other (symptoms have resolved on arrival) Psychiatric: Reports: No Symptoms Hematologic/Lymphatic: Reports: No Symptoms Immunologic: Reports: No Symptoms - Physical Exam Exam: See Below Exam Limited By: No Limitations General Appearance: Alert, WD/WN, No Apparent Distress Eye Exam: Bilateral Eye: EOMI, PERRL Ears: Normal TMs Nose: Normal Inspection, Normal Mucosa, No Blood Throat/Mouth: Normal Inspection, Normal Lips, Normal Teeth, Normal Gums, Normal Oropharynx, Normal Voice, No Airway Compromise Head Exam: Atraumatic, Normocephalic Neck: Normal Inspection, Supple, Non-Tender, Full Range of Motion Respiratory/Chest: No Respiratory Distress, Lungs Clear, Normal Breath Sounds, No Accessory Muscle Use, Chest Non-Tender Cardiovascular: Normal Peripheral Pulses, Regular Rate, Rhythm, No Edema, No Gallop, No JVD, No Murmur, No Rub GI/Abdominal: Normal Bowel Sounds, Soft, Non-Tender, No Organomegaly, No Distention, No Abnormal Bruit, No Mass Neuro Exam (Abbreviated): Alert, Oriented, CN II-XII Intact, Normal Cognition, Normal Gait, Normal Reflexes, No Motor/Sensory Deficits Back Exam: Normal Inspection, Full Range of Motion, NT Extremities: Normal Inspection, Normal Range of Motion, Non-Tender, No Pedal Edema, Normal Capillary Refill Psychiatric: Normal Affect, Normal Mood Skin Exam: Warm, Dry, Intact, Normal Color, No Rash Course - Vital Signs Last Recorded V/S: Last Vital Signs Temp 35.4 C 06/05/18 10:40 Pulse 95 06/05/18 10:40 Resp 20 06/05/18 10:40 BP 95/67 06/05/18 10:40 Pulse Ox 94 L 06/05/18 10:40 - Orders/Labs/Meds Orders: Active Orders 24 hr Category Date Time Status EKG 12 Lead [EKG Documentation Completion] [RC] STAT Care 06/05/18 10:08 Active URINALYSIS W/MICROSCOPIC [UA W/MICROSCOPIC] [URIN] Stat Lab 06/05/18 11:57 Ordered Labs: Laboratory Tests 06/05/18 06/05/18 06/05/18 Range/Units 10:22 10:22 10:22 WBC 4.7 (4.0-10.0) x10^3/uL RBC 4.30 (4.00-5.50) x10^6/uL Hgb 12.2 (12.0-16.0) g/dL Hct 38.4 (33.0-47.0) % MCV 89.3 D (78.0-93.0) fL MCH 28.4 (26.0-32.0) pg MCHC 31.8 L (32.0-36.0) g/dL RDW Coeff of Jose 15.8 H (10.0-15.0) % Plt Count 370 (130-400) x10^3/uL Add Manual Diff Yes Neutrophils % (Manual) 41 L (50-80) % Lymphocytes % (Manual) 50 (25-50) % Monocytes % (Manual) 9 (2-11) % Hypersegmented Neuts Few H Platelet Estimate Adequate PT 10.9 (9.6-11.4) SEC INR 1.0 L (2.0-3.5) Sodium 142 (136-145) mmol/L Potassium 4.4 (3.5-5.1) mmol/L Chloride 105 (98-107) mmol/L Carbon Dioxide 30 (21-32) mmol/L Anion Gap 11.4 (10-20) mmol/L BUN 24 H (7-18) mg/dL Creatinine 0.8 (0.55-1.02) mg/dL Est Cr Clr Drug Dosing 64.01 mL/min Estimated GFR (MDRD) > 60 Glucose 112 H (74-106) mg/dL Calcium 9.1 (8.5-10.1) mg/dL Corrected Calcium 9.50 (8.5-10.1) mg/dL Total Bilirubin 0.4 (0.2-1.0) mg/dL AST 22 (15-37) U/L ALT 28 (14-59) U/L Alkaline Phosphatase 109 (46-116) U/L Creatine Kinase 40 (26-192) U/L Troponin I 0.036 (<=0.056) ng/mL NT-Pro-B Natriuret Pep 638 H (<=125) pg/mL Total Protein 7.7 (6.4-8.2) g/dL Albumin 3.5 (3.4-5.0) g/dL Globulin 4.2 Albumin/Globulin Ratio 0.83 TSH, Ultra Sensitive 3.040 (0.358-3.74) uIU/mL Meds: Medications Discontinued Medications Generic Name Dose Route Start Last Admin Trade Name Freq PRN Reason Stop Dose Admin Sodium Chloride 1,000 mls @ 999 mls/hr 06/05/18 10:08 06/05/18 10:37 Normal Saline IV 06/05/18 11:08 999 mls/hr ONETIME ONE Administration - Re-Assessments/Exams Free Text/Narrative Re-Assessment/Exam: 06/05/18 13:43 UA positive for UTI, started on antibiotic, macrobid 100 mg bid x 5 days, culture ordered Departure - Departure Time of Disposition: 13:23 Disposition: Home, Self-Care 01 Condition: Good Clinical Impression: Syncope, Urinary tract infection - Discharge Information *PRESCRIPTION DRUG MONITORING PROGRAM REVIEWED*: Not Applicable *COPY OF PRESCRIPTION DRUG MONITORING REPORT IN PATIENT GM: Not Applicable Instructions: Syncope, [id number], Urinary Tract Infection, Adult, Easy-to- Read, Probiotics, Nitrofurantoin tablets or capsules Referrals: Hussein Bond MD [Primary Care Provider] - Additional Instructions: Plan 1. Follow up with Dr. Bond for additional testing. 2. This may be a result of dehydration, however, there may be additional causes that are heart or brain oriented and he can order additional tests. 3. Stay well hydrated. 4. You do have a urinary tract infection. Please take the antibiotic macrobid twice a day for 5 days even if you are feeling better. 5. Please return if you have any additional symptoms; and call if there are any questions or concerns. - Problem List & Annotations (1) Syncope SNOMED Code(s): 304990206 Code(s): R55 - SYNCOPE AND COLLAPSE Status: Acute Priority: Medium Current Visit: Yes Qualifiers: Encounter type: initial encounter (2) Urinary tract infection SNOMED Code(s): 15723182 Code(s): N39.0 - URINARY TRACT INFECTION, SITE NOT SPECIFIED Status: Acute Priority: Medium Current Visit: Yes Qualifiers: Urinary tract infection type: acute cystitis Hematuria presence: without hematuria Qualified Code(s): N30.00 - Acute cystitis without hematuria - Problem List Review Problem List Initiated/Reviewed/Updated: Yes - My Orders Last 24 Hours: My Active Orders 06/05/18 10:08 EKG 12 Lead [EKG Documentation Completion] [RC] STAT 06/05/18 11:57 URINALYSIS W/MICROSCOPIC [UA W/MICROSCOPIC] [URIN] Stat - Assessment/Plan Last 24 Hours: My Active Orders 06/05/18 10:08 EKG 12 Lead [EKG Documentation Completion] [RC] STAT 06/05/18 11:57 URINALYSIS W/MICROSCOPIC [UA W/MICROSCOPIC] [URIN] Stat Assessment:: Syncope UTI Plan: Plan 1. Follow up with Dr. Bond for additional testing. 2. This may be a result of dehydration, however, there may be additional causes that are heart or brain oriented and he can order additional tests. 3. Stay well hydrated. 4. You do have a urinary tract infection. Please take the antibiotic macrobid twice a day for 5 days even if you are feeling better. 5. Please return if you have any additional symptoms; and call if there are any questions or concerns.
[2018-06-05] MEDS ORDERED: Nitrofurantoin Monohydrate/Macrocrystalline 100 MG Cap PO ONE (13:19)
== END 2018-06-05 13:30 | disposition home or self-care (01) ==
LOC: VM.ED 10:02
DX: R55 Syncope and collapse (principal); N39.0 Urinary tract infection, site not specified; B96.89 Other specified bacterial agents as the cause of diseases classified elsewhere; Z16.39 Resistance to other specified antimicrobial drug; I25.2 Old myocardial infarction; F32.9 Major depressive disorder, single episode, unspecified; Z79.899 Other long term (current) drug therapy; Z88.0 Allergy status to penicillin; Z88.8 Allergy status to other drugs, medicaments and biological substances
CPT/HCPCS: 36415; 80053; 81001; 82550; 83880; 84443; 84484; 85025; 85610; 87086; 87088; 87186; 93005; 96360; 96361; 99285; A9270; J7030; 99283-GF

== ENCOUNTER 2018-08-01 10:27 | Emergency (ER) | payer MEDICARE, MEDICAID ==
[2018-08-01] MEDS ORDERED: Sodium Chloride 0.9% 10 ML Syringe FLUSH PRN ×2 (10:39→10:40)
[2018-08-01 11:27] LABS: CHLORIDE,CL 105 mmol/L (98-107); SODIUM,NA 140 mmol/L (136-145)
--- NOTE | 2018-08-01 11:30 | CT ---
[id number] CT/CT Head WO IV EXAM: NONCONTRAST HEAD CT INDICATION: Change in level of consciousness. COMPARISON: July 09, 2016. DISCUSSION: Bilateral frontal lobe encephalomalacia could be from prior infarcts, trauma or other remote insult. A stable CSF density left basal ganglia hypodensity could represent a prominent Virchow-Jacek space or less likely chronic lacunar infarct. Moderate cerebellar atrophy. No mass effect, midline shift, hydrocephalus, acute territorial infarct, hemorrhage or extra-axial collection is identified. Air-fluid levels in the right maxillary and frontal sinuses suggest acute sinusitis. There is mild to moderate bilateral ethmoid sinus mucosal thickening. Overall, findings are similar to the prior examination. IMPRESSION: 1. No acute intracranial findings 2. Sinusitis. Blas Soria MD 08/01/18 1129 Thank you for allowing us to participate in the care of your patient.
[2018-08-01] MEDS ORDERED: Sodium Chloride 0.9% 1,000 ML IV SCH (12:15)
--- NOTE | 2018-08-01 12:26 | EDM.PDOC ---
ED HPI GENERAL MEDICAL PROBLEM - General Chief Complaint: Syncope Stated Complaint: LOW BP, HIGH PULSE Time Seen by Provider: 08/01/18 10:35 Source of Information: Reports: Patient, EMS, EMS Notes Reviewed, Other History Limitations: Reports: No Limitations - History of Present Illness INITIAL COMMENTS - FREE TEXT/NARRATIVE: Patient comes into the emergency department with EMS for complaints of a low blood pressure. Patient was visiting with [facility] and she became diaphoretic and pale and was not responding appropriately. Blood pressure was checked and blood pressure was in 60s systolic. Staff contacted emergency services. When EMS was on scene patient is alert talking blood pressure was in the 90s. Patient declined any concerns or complaints. Upon arrival to the emergency department patient denies any shortness of breath, chest pain, dizziness, lightheadedness, or nausea and vomiting. Onset: Sudden Improves with: Reports: None Worsens with: Reports: None Associated Symptoms: Reports: No Other Symptoms - Related Data Allergies Allergy/AdvReac Type Severity Reaction Status Date / Time carbamazepine [From Tegretol] Allergy Cannot Verified 10/07/17 09:35 Remember Penicillins Allergy Cannot Verified 10/07/17 09:35 Remember Home Meds: Home Meds Donepezil [Aricept] 5 mg PO BEDTIME 10/23/14 [History] Felbamate 1,500 mg PO BID 10/23/14 [History] Sertraline [Zoloft] 2 tab PO DAILY 10/23/14 [History] traZODone 50 mg PO BEDTIME 10/23/14 [History] Albuterol/Ipratropium [DuoNeb 3.0-0.5 MG/3 ML] 3 ml NEB QID PRN 03/19/17 [ History] Pantoprazole [ProTONIX] 40 mg PO BIDAC 03/19/17 [History] Phenytoin Sodium Extended [Dilantin] 100 mg PO BEDTIME 03/19/17 [History] Sennosides/Docusate Sodium [Senna-Docusate Sodium] 1 tab PO BID 03/19/17 [ History] Calcium Carbonate/Vitamin D3 [Calcium 600 + Vit D 400 Softgl] 1 each PO DAILY [History] Potassium Chloride [Klor-Con M20] 20 meq PO DAILY 04/23/17 [History] Aspirin [Halfprin] 81 mg PO DAILY 08/04/17 [History] Carvedilol 1 tab PO DAILY 08/04/17 [History] levETIRAcetam [Keppra] 1 tab PO DAILY 08/04/17 [History] levETIRAcetam [Keppra] 1 tab PO DAILY 08/04/17 [History] levETIRAcetam [Keppra] 2 tab PO BEDTIME 08/04/17 [History] Past Medical History - Past Health History Medical/Surgical History: Denies Medical/Surgical History HEENT History: Reports: Cataract, Other (See Below) Other HEENT History: presbyopia, entropion eyelid, myopia Cardiovascular History: Reports: CAD, [place] Gastrointestinal History: Reports: Other (See Below) Other Gastrointestinal History: liver failure, adenomatous colon polyp Genitourinary History: Reports: Other (See Below) Other Genitourinary History: renal injury 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 Musculoskeletal History: Reports: Other (See Below) Other Musculoskeletal History: left knee injury, ataxia, bimalleolar ankle fracture, spontaneous ruputre of flexor tendon,cellulitis of elbow, osteopenia Neurological History: Reports: Head Trauma, Migraines, Seizure Other Neuro History: memory loss Psychiatric History: Reports: Depression - Past Surgical History HEENT Surgical History: Reports: Other (See Below) Other HEENT Surgeries/Procedures: ecteopion entropion Cardiovascular Surgical History: Reports: Other (See Below) Other Cardiovascular Surgeries/Procedures: percutaneous coronary intervention cath GI Surgical History: Reports: None Female Surgical History: Reports: None Musculoskeletal Surgical History: Reports: Other (See Below) Other Musculoskeletal Surgeries/Procedures:: fx repair, ligament repair Social & Family History - Family History Family Medical History: Noncontributory - Caffeine Use Caffeine Use: Reports: None ED ROS GENERAL - Review of Systems Review Of Systems: See Below Constitutional: Reports: No Symptoms HEENT: Reports: No Symptoms Respiratory: Reports: No Symptoms Cardiovascular: Reports: No Symptoms Endocrine: Reports: No Symptoms GI/Abdominal: Reports: No Symptoms : Reports: No Symptoms Musculoskeletal: Reports: No Symptoms Skin: Reports: No Symptoms Neurological: Reports: No Symptoms Psychiatric: Reports: No Symptoms Hematologic/Lymphatic: Reports: No Symptoms Immunologic: Reports: No Symptoms ED EXAM, GENERAL - Physical Exam Exam: See Below Exam Limited By: No Limitations General Appearance: Alert, WD/WN, No Apparent Distress Head: Atraumatic, Normocephalic Neck: Normal Inspection, Supple, Non-Tender, Full Range of Motion Respiratory/Chest: No Respiratory Distress, Lungs Clear, No Accessory Muscle Use , Chest Non-Tender Cardiovascular: Normal Peripheral Pulses, Regular Rate, Rhythm Extremities: Normal Inspection, Normal Range of Motion, Normal Capillary Refill Neurological: Alert, Oriented, Normal Gait Psychiatric: Normal Affect, Normal Mood Skin Exam: Warm, Dry, Intact, Normal Color Course - Orders/Labs/Meds Orders: Active Orders 24 hr Category Date Time Status Cardiac Monitoring [RC] . DIRECTED Care 08/01/18 10:39 Active EKG Documentation Completion [RC] STAT Care 08/01/18 10:39 Active Sodium Chloride 0.9% [Normal Saline] 1,000 ml Med 08/01/18 12:15 Active IV ASDIRECTED Sodium Chloride 0.9% [Saline Flush] Med 08/01/18 10:39 Active 10 ml FLUSH ASDIRECTED PRN Sodium Chloride 0.9% [Saline Flush] Med 08/01/18 10:40 Active 10 ml FLUSH ASDIRECTED PRN Peripheral IV Insertion Adult [OM.PC] Stat Oth 08/01/18 10:39 Ordered Medication Orders Sodium Chloride (Normal Saline) 1,000 mls @ 1,000 mls/hr IV ASDIRECTED GRCAE Sodium Chloride (Saline Flush) 10 ml FLUSH ASDIRECTED PRN PRN Reason: Keep Vein Open Sodium Chloride (Saline Flush) 10 ml FLUSH ASDIRECTED PRN PRN Reason: Keep Vein Open Labs: Laboratory Tests 08/01/18 08/01/18 Range/Units 10:50 10:50 WBC 4.8 (4.0-10.0) x10^3/uL RBC 4.25 (4.00-5.50) x10^6/uL Hgb 11.9 L (12.0-16.0) g/dL Hct 38.4 (33.0-47.0) % MCV 90.4 (78.0-93.0) fL MCH 28.0 (26.0-32.0) pg MCHC 31.0 L (32.0-36.0) g/dL RDW Coeff of Jose 16.3 H (10.0-15.0) % Plt Count 338 (130-400) x10^3/uL Add Manual Diff Yes Neutrophils % (Manual) 23 L (50-80) % Lymphocytes % (Manual) 48 (25-50) % Monocytes % (Manual) 25 H (2-11) % Basophils % (Manual) 3 H (0-1) % Blast Cells % 1 H (0) % Platelet Estimate Adequate Puente-Topstone Bodies Few Sodium 140 (136-145) mmol/L Potassium 4.0 (3.5-5.1) mmol/L Chloride 105 (98-107) mmol/L Carbon Dioxide 27 (21-32) mmol/L Anion Gap 12.0 (10-20) mmol/L BUN 20 H (7-18) mg/dL Creatinine 1.0 (0.55-1.02) mg/dL Est Cr Clr Drug Dosing TNP Estimated GFR (MDRD) 57 Glucose 108 H (74-106) mg/dL Calcium 8.7 (8.5-10.1) mg/dL Corrected Calcium 9.18 (8.5-10.1) mg/dL Total Bilirubin 0.4 (0.2-1.0) mg/dL AST 22 (15-37) U/L ALT 25 (14-59) U/L Alkaline Phosphatase 95 (46-116) U/L NT-Pro-B Natriuret Pep 1508 H (<=125) pg/mL Total Protein 7.4 (6.4-8.2) g/dL Albumin 3.4 (3.4-5.0) g/dL Globulin 4.0 Albumin/Globulin Ratio 0.85 Meds: Medications Generic Name Dose Route Start Last Admin Trade Name Freq PRN Reason Stop Dose Admin Sodium Chloride 1,000 mls @ 1,000 mls/hr 08/01/18 12:15 Normal Saline IV ASDIRECTED GRACE Sodium Chloride 10 ml 08/01/18 10:39 Saline Flush FLUSH ASDIRECTED PRN Keep Vein Open Sodium Chloride 10 ml 08/01/18 10:40 Saline Flush FLUSH ASDIRECTED PRN Keep Vein Open Departure - Departure Time of Disposition: 11:35 Disposition: Home, Self-Care 01 Condition: Good Clinical Impression: Hypotension Qualifiers: Hypotension type: hypotension due to drug Qualified Code(s): I95.2 - Hypotension due to drugs - Discharge Information *PRESCRIPTION DRUG MONITORING PROGRAM REVIEWED*: Not Applicable *COPY OF PRESCRIPTION DRUG MONITORING REPORT IN PATIENT GM: Not Applicable Instructions: Hypotension, [id number] Referrals: Patrica Hernandez, [Primary Care Provider] - Forms: ED Department Discharge Additional Instructions: 1. increase water intake 2. recommendation taking pulse and bp prior to giving any cardiac medications. if pulse is less than 60 or systolic bp less than 90 hold Carvedilol. Follow up with PCP next week for further recommendation and custodial management. 3. Call with any questions or concerns - Problem List Review Problem List Initiated/Reviewed/Updated: Yes - My Orders Last 24 Hours: My Active Orders 08/01/18 10:39 Cardiac Monitoring [RC] . DIRECTED EKG Documentation Completion [RC] STAT Sodium Chloride 0.9% [Saline Flush] 10 ml FLUSH ASDIRECTED PRN Peripheral IV Insertion Adult [OM.PC] Stat 08/01/18 10:40 Sodium Chloride 0.9% [Saline Flush] 10 ml FLUSH ASDIRECTED PRN 08/01/18 12:15 Sodium Chloride 0.9% [Normal Saline] 1,000 ml IV ASDIRECTED - Assessment/Plan Last 24 Hours: My Active Orders 08/01/18 10:39 Cardiac Monitoring [RC] . DIRECTED EKG Documentation Completion [RC] STAT Sodium Chloride 0.9% [Saline Flush] 10 ml FLUSH ASDIRECTED PRN Peripheral IV Insertion Adult [OM.PC] Stat 08/01/18 10:40 Sodium Chloride 0.9% [Saline Flush] 10 ml FLUSH ASDIRECTED PRN 08/01/18 12:15 Sodium Chloride 0.9% [Normal Saline] 1,000 ml IV ASDIRECTED Assessment:: 1. resolved hypotension Plan: 1. CT scan completed in ER 2. EKG completed in ER 3. Labs completed in ER 4. IV fluids given in ER 5. Patient has had similar incidences regarding low blood pressure after receiving her morning medications. She and symptoms were resolved prior to arrival to the emergency department with EMS. Patient has no complaints or concerns upon admission were during hospitalization. Patient does not want to be admitted. Patient does have next can present and is agreement that [facility] It is advisable that the staff check pulse and blood pressure prior to giving any sort of cardiac medications throat the weekend. 6. It is recommended that the patient follow-up with PCP on Saturday for further recommendation and long-term treatment options regarding current management 7. All questions concerns addressed prior to discharge
[2018-08-01 16:21] VITALS: BP 97/65
== END 2018-08-01 12:40 | disposition home or self-care (01) ==
LOC: VM.ED 10:27
DX: I95.2 Hypotension due to drugs (principal); F32.9 Major depressive disorder, single episode, unspecified; Z79.82 Long term (current) use of aspirin; Z79.899 Other long term (current) drug therapy; Z88.0 Allergy status to penicillin; Z88.8 Allergy status to other drugs, medicaments and biological substances
CPT/HCPCS: 36415; 70450; 80053; 83880; 85025; 93005; 96360; 96361; 99285; J7030

== ENCOUNTER 2018-12-30 13:28 | Emergency (ER) | payer MEDICARE, MEDICAID ==
[2018-12-30] MEDS ORDERED: Sodium Chloride 0.9% 10 ML Syringe FLUSH PRN (13:39)
[2018-12-30] MEDS ORDERED: Sodium Chloride 0.9% 1,000 ML IV ONE (13:39)
[2018-12-30 14:35] LABS: CHLORIDE,CL 101 mmol/L (98-107); SODIUM,NA 139 mmol/L (136-145)
[2018-12-30 14:37] LABS: ANION GAP 17.1 mmol/L (10-20)
[2018-12-30] MEDS ORDERED: cefTRIAXone 2 GM Vial IVPUSH ONE (14:47)
--- NOTE | 2018-12-30 14:59 | CR ---
[id number] RAD/RAD Chest PA or AP 1V EXAM: SINGLE VIEW CHEST. INDICATION: TACHYPNEA COMPARISON: CORRELATION IS MADE WITH THE EXAM OF APRIL 17, 2017. FINDINGS: A patchy infiltrate is seen at the right lung base. The cardiac silhouette is enlarged. Old rib fractures are seen. The hilar regions are prominent. IMPRESSION: PATCHY INFILTRATE RIGHT LUNG BASE. Randy Bower MD 12/30/18 [id number] Thank you for allowing us to participate in the care of your patient.
[2018-12-30] MEDS ORDERED: Furosemide 40 MG/4 ML VIAL IV ONE (15:03)
--- NOTE | 2018-12-30 15:56 | EDM.PDOC ---
ED HPI GENERAL MEDICAL PROBLEM - General Chief Complaint: Respiratory Problem Stated Complaint: FAST RESPORATIONS, CONFUSION Time Seen by Provider: 12/30/18 13:38 Source of Information: Reports: Patient, Other History Limitations: Reports: Altered Mental Status (traumatic brain injury) - History of Present Illness INITIAL COMMENTS - FREE TEXT/NARRATIVE: [facility] [place] and is brought in for evaluation due to increased respirations, increased confusion, elevated heart rate. This began earlier this morning and staff state she can get like this when she has urinary tract infections. She can answer questions but is impulsive and is not able to provide much of a specific history. These questions are answered by [facility]. She was afebrile today. She denies chest pain, abdominal pain, no blood in urine or stools. Onset: Today, Sudden Duration: Getting Worse Location: Reports: Generalized - Related Data Allergies Allergy/AdvReac Type Severity Reaction Status Date / Time carbamazepine [From Tegretol] Allergy Cannot Verified 12/30/18 13:45 Remember Penicillins Allergy Cannot Verified 12/30/18 13:45 Remember Home Meds: Home Meds Donepezil [Aricept] 5 mg PO BEDTIME 10/23/14 [History] Felbamate 1,500 mg PO BID 10/23/14 [History] Sertraline [Zoloft] 2 tab PO DAILY 10/23/14 [History] traZODone 50 mg PO BEDTIME 10/23/14 [History] Albuterol/Ipratropium [DuoNeb 3.0-0.5 MG/3 ML] 3 ml NEB QID PRN 03/19/17 [ History] Pantoprazole [ProTONIX] 40 mg PO BIDAC 03/19/17 [History] Phenytoin Sodium Extended [Dilantin] 100 mg PO BEDTIME 03/19/17 [History] Sennosides/Docusate Sodium [Senna-Docusate Sodium] 1 tab PO BID 03/19/17 [ History] Calcium Carbonate/Vitamin D3 [Calcium 600 + Vit D 400 Softgl] 1 each PO DAILY [History] Potassium Chloride [Klor-Con M20] 20 meq PO DAILY 04/23/17 [History] Aspirin [Halfprin] 81 mg PO DAILY 08/04/17 [History] Carvedilol 1 tab PO DAILY 08/04/17 [History] levETIRAcetam [Keppra] 1 tab PO DAILY 08/04/17 [History] levETIRAcetam [Keppra] 1 tab PO DAILY 08/04/17 [History] levETIRAcetam [Keppra] 2 tab PO BEDTIME 08/04/17 [History] Past Medical History - Past Health History Medical/Surgical History: Denies Medical/Surgical History HEENT History: Reports: Cataract, Other (See Below) Other HEENT History: presbyopia, entropion eyelid, myopia Cardiovascular History: Reports: CAD, [place] Gastrointestinal History: Reports: Other (See Below) Other Gastrointestinal History: liver failure, adenomatous colon polyp Genitourinary History: Reports: Other (See Below) Other Genitourinary History: renal injury Other [employer] History: early menopause Musculoskeletal History: Reports: Other (See Below) Other Musculoskeletal History: left knee injury, ataxia, bimalleolar ankle fracture, spontaneous ruputre of flexor tendon,cellulitis of elbow, osteopenia Neurological History: Reports: Head Trauma, Migraines, Seizure Other Neuro History: memory loss Psychiatric History: Reports: Depression - Past Surgical History HEENT Surgical History: Reports: Other (See Below) Other HEENT Surgeries/Procedures: ecteopion entropion Cardiovascular Surgical History: Reports: Other (See Below) Other Cardiovascular Surgeries/Procedures: percutaneous coronary intervention cath GI Surgical History: Reports: None Female Surgical History: Reports: None Musculoskeletal Surgical History: Reports: Other (See Below) Other Musculoskeletal Surgeries/Procedures:: fx repair, ligament repair Social & Family History - Family History Family Medical History: Noncontributory - Tobacco Use Smoking Status *Q: Never Smoker - Caffeine Use Caffeine Use: Reports: None ED ROS GENERAL - Review of Systems Review Of Systems: See Below Constitutional: Reports: No Symptoms HEENT: Reports: No Symptoms Respiratory: Reports: Other (increased rr rate) Cardiovascular: Reports: No Symptoms Endocrine: Reports: No Symptoms GI/Abdominal: Reports: No Symptoms : Reports: No Symptoms Musculoskeletal: Reports: No Symptoms Skin: Reports: No Symptoms Neurological: Reports: Confusion Psychiatric: Reports: No Symptoms Hematologic/Lymphatic: Reports: No Symptoms Immunologic: Reports: No Symptoms ED EXAM, GENERAL - Physical Exam Exam: See Below Exam Limited By: Physical Impairment General Appearance: Alert, WD/WN, Mild Distress Eye Exam: Bilateral Eye: EOMI, Normal Inspection, PERRL Ears: Normal TMs Nose: Normal Inspection, Normal Mucosa, No Blood Throat/Mouth: Normal Inspection, Normal Lips, Normal Teeth, Normal Gums, Normal Oropharynx, Normal Voice, No Airway Compromise Head: Atraumatic, Normocephalic Neck: Normal Inspection, Supple, Non-Tender, Full Range of Motion Respiratory/Chest: No Accessory Muscle Use, Chest Non-Tender, Rales (right lower lobe) Cardiovascular: Normal Peripheral Pulses, Regular Rate, Rhythm, No Edema, No Murmur GI/Abdominal: Normal Bowel Sounds, Soft, Non-Tender, No Organomegaly, No Distention, No Abnormal Bruit, No Mass Back Exam: Normal Inspection, Full Range of Motion, NT Extremities: Normal Inspection, Normal Range of Motion, Non-Tender, Normal Capillary Refill, No Pedal Edema Neurological: Alert, Normal Gait, No Motor/Sensory Deficits, Confused Psychiatric: Normal Affect, Normal Mood Skin Exam: Warm, Dry, Intact, Normal Color, No Rash Lymphatic: No Adenopathy EKG INTERPRETATION EKG Date: 12/30/18 Time: 17:04 Rhythm: Other (Based on discussion with cardiology, not likely junctional. May be sinus rhythm with buried P wave) Rate (Beats/Min): 97 Ada: Normal P-Wave: Present (likely buried within the QRS complex) QRS: RBBB Course - Vital Signs Last Recorded V/S: Last Vital Signs Temp 38.6 C H 12/30/18 16:55 Pulse 97 12/30/18 16:55 Resp 42 H 12/30/18 16:55 BP 105/64 12/30/18 16:55 Pulse Ox 93 L 12/30/18 16:55 - Orders/Labs/Meds Orders: Active Orders 24 hr Category Date Time Status CULTURE BLOOD [BC] Stat Lab 12/30/18 15:26 Received CULTURE BLOOD [BC] Stat Lab 12/30/18 15:33 Results UA W/MICROSCOPIC [URIN] Stat Lab 12/30/18 13:39 Ordered Sodium Chloride 0.9% [Saline Flush] Med 12/30/18 13:39 Active 10 ml FLUSH ASDIRECTED PRN Blood Culture x2 Reflex Set [OM.PC] Stat Oth 12/30/18 14:49 Ordered Saline Lock Insert [OM.PC] Routine Oth 12/30/18 13:39 Ordered Medication Orders Vancomycin HCl 1 gm/ Sodium (Chloride) 250 mls @ 250 mls/hr IV STAT ONE Stop: 12/30/18 18:24 Last Admin: 12/30/18 17:34 Dose: 250 mls/hr Sodium Chloride (Saline Flush) 10 ml FLUSH ASDIRECTED PRN PRN Reason: Keep Vein Open Labs: Laboratory Tests 12/30/18 12/30/18 12/30/18 Range/Units 13:50 13:50 13:50 WBC 21.1 H* (4.0-10.0) x10^3/uL RBC 3.91 L (4.00-5.50) x10^6/uL Hgb 11.1 L (12.0-16.0) g/dL Hct 35.5 (33.0-47.0) % MCV 90.8 (78.0-93.0) fL MCH 28.4 (26.0-32.0) pg MCHC 31.3 L (32.0-36.0) g/dL RDW Coeff of Jose 15.3 H (10.0-15.0) % Plt Count 267 (130-400) x10^3/uL Add Manual Diff Yes Neutrophils % (Manual) 53 (50-80) % Band Neutrophils % 32 H (0-6) % Lymphocytes % (Manual) 6 L (25-50) % Monocytes % (Manual) 4 (2-11) % Eosinophils % (Manual) 1 (0-4) % Basophils % (Manual) 1 (0-1) % Metamyelocytes % 3 H (0) % Platelet Estimate Adequate Anisocytosis 1+ slight H [place] Bodies Rare Sodium 139 (136-145) mmol/L Potassium 4.1 (3.5-5.1) mmol/L Chloride 101 (98-107) mmol/L Carbon Dioxide 25 (21-32) mmol/L Anion Gap 17.1 (10-20) mmol/L BUN 40 H (7-18) mg/dL Creatinine 1.8 H (0.55-1.02) mg/dL Est Cr Clr Drug Dosing TNP Estimated GFR (MDRD) 29 Glucose 97 (74-106) mg/dL Lactic Acid 4.8 H* (0.4-2.0) mmol/L Calcium 9.4 (8.5-10.1) mg/dL Corrected Calcium 9.72 (8.5-10.1) mg/dL Magnesium 1.4 L (1.8-2.4) mg/dL Total Bilirubin 0.9 (0.2-1.0) mg/dL AST 116 H (15-37) U/L ALT 101 H (14-59) U/L Alkaline Phosphatase 78 (46-116) U/L Troponin I (<=0.056) ng/mL C-Reactive Protein 8.0 H (<=0.9) mg/dL NT-Pro-B Natriuret Pep 28464 H (<=125) pg/mL Total Protein 7.5 (6.4-8.2) g/dL Albumin 3.6 (3.4-5.0) g/dL Globulin 3.9 Albumin/Globulin Ratio 0.92 /20/19 Range/Units 13:50 WBC (4.0-10.0) x10^3/uL RBC (4.00-5.50) x10^6/uL Hgb (12.0-16.0) g/dL Hct (33.0-47.0) % MCV (78.0-93.0) fL MCH (26.0-32.0) pg MCHC (32.0-36.0) g/dL RDW Coeff of Jose (10.0-15.0) % Plt Count (130-400) x10^3/uL Add Manual Diff Neutrophils % (Manual) (50-80) % Band Neutrophils % (0-6) % Lymphocytes % (Manual) (25-50) % Monocytes % (Manual) (2-11) % Eosinophils % (Manual) (0-4) % Basophils % (Manual) (0-1) % Metamyelocytes % (0) % Platelet Estimate Anisocytosis [place] Bodies Sodium (136-145) mmol/L Potassium (3.5-5.1) mmol/L Chloride (98-107) mmol/L Carbon Dioxide (21-32) mmol/L Anion Gap (10-20) mmol/L BUN (7-18) mg/dL Creatinine (0.55-1.02) mg/dL Est Cr Clr Drug Dosing Estimated GFR (MDRD) Glucose (74-106) mg/dL Lactic Acid (0.4-2.0) mmol/L Calcium (8.5-10.1) mg/dL Corrected Calcium (8.5-10.1) mg/dL Magnesium (1.8-2.4) mg/dL Total Bilirubin (0.2-1.0) mg/dL AST (15-37) U/L ALT (14-59) U/L Alkaline Phosphatase (46-116) U/L Troponin I 0.295 H* (<=0.056) ng/mL C-Reactive Protein (<=0.9) mg/dL NT-Pro-B Natriuret Pep (<=125) pg/mL Total Protein (6.4-8.2) g/dL Albumin (3.4-5.0) g/dL Globulin Albumin/Globulin Ratio Meds: Medications Generic Name Dose Route Start Last Admin Trade Name Susan PRN Reason Stop Dose Admin Vancomycin HCl 1 gm/ Sodium 250 mls @ 250 mls/hr 12/30/18 17:25 12/30/18 17: 34 Chloride IV 12/30/18 18:24 250 mls/hr STAT ONE Administration Sodium Chloride 10 ml 12/30/18 13:39 Saline Flush FLUSH ASDIRECTED PRN Keep Vein Open Discontinued Medications Generic Name Dose Route Start Last Admin Trade Name Susan PRN Reason Stop Dose Admin Ceftriaxone Sodium 2 gm 12/30/18 14:47 12/30/18 15:04 Rocephin IVPUSH 12/30/18 14:48 2 gm STAT ONE Administration Furosemide 40 mg 12/30/18 15:03 12/30/18 15:45 Lasix IV 12/30/18 15:04 40 mg ONETIME ONE Administration Sodium Chloride 1,000 mls @ 999 mls/hr 12/30/18 13:39 12/30/18 14:29 Normal Saline IV 12/30/18 14:39 999 mls/hr ONETIME ONE Administration Metronidazole 500 mg/ Premix 100 mls @ 100 mls/hr 12/30/18 17:02 12/30/18 17: 20 IV 12/30/18 18:01 100 mls/hr ONETIME ONE Administration Vancomycin HCl 1.5 gm/ Sodium 250 mls @ 165 mls/hr 12/30/18 17:02 Chloride IV 12/30/18 18:32 ONETIME ONE Vancomycin HCl Confirm 12/30/18 17:32 12/30/18 17:41 Vancomycin Administered 12/30/18 17:33 Not Given Dose 1 gm .ROUTE .STK-MED ONE - Radiology Interpretation Free Text/Narrative:: x-ray shows right lower lobe infiltrate Departure - Departure Time of Disposition: 18:10 Disposition: DC/Tfer to Acute Hospital 02 Condition: Fair Clinical Impression: Pneumonia of right lower lobe due to infectious organism, Elevated troponin level - Discharge Information *PRESCRIPTION DRUG MONITORING PROGRAM REVIEWED*: Not Applicable *COPY OF PRESCRIPTION DRUG MONITORING REPORT IN PATIENT GM: Not Applicable ED Communication - ED Communication Date/Time Date: 12/30/18 Time Called: 17:04 - Discussed Case With (1) Discussed Case With (1): Admitting Provider (Dr. Addison from [facility] has been given report and will accept patient in transfer. Await room number and ambulance arrival.) - Discussed Case With (2) Discussed Case With (2): Other Provider (Dr. Olivia with cardiology contacted regarding abnormal EKG. HE did not feel this was an acute IA based on her current medical state. Serial EKG to follow at [place].) - Problem List & Annotations (1) Elevated troponin level SNOMED Code(s): 870822830, 733969445, 010226394 Code(s): R74.8 - ABNORMAL LEVELS OF OTHER SERUM ENZYMES Status: Acute Current Visit: Yes (2) Pneumonia of right lower lobe due to infectious organism SNOMED Code(s): 310536209, 395432320 Code(s): J18.1 - LOBAR PNEUMONIA, UNSPECIFIED ORGANISM Status: Acute Current Visit: Yes - My Orders Last 24 Hours: My Active Orders 12/30/18 13:39 UA W/MICROSCOPIC [URIN] Stat Sodium Chloride 0.9% [Saline Flush] 10 ml FLUSH ASDIRECTED PRN Saline Lock Insert [OM.PC] Routine 12/30/18 14:49 Blood Culture x2 Reflex Set [OM.PC] Stat 12/30/18 15:26 CULTURE BLOOD [BC] Stat 12/30/18 15:33 CULTURE BLOOD [BC] Stat - Assessment/Plan Last 24 Hours: My Active Orders 12/30/18 13:39 UA W/MICROSCOPIC [URIN] Stat Sodium Chloride 0.9% [Saline Flush] 10 ml FLUSH ASDIRECTED PRN Saline Lock Insert [OM.PC] Routine 12/30/18 14:49 Blood Culture x2 Reflex Set [OM.PC] Stat 12/30/18 15:26 CULTURE BLOOD [BC] Stat 12/30/18 15:33 CULTURE BLOOD [BC] Stat
[2018-12-30 16:59] VITALS: BP 105/64; PULSE 97
[2018-12-30] MEDS ORDERED: metroNIDAZOLE/Normal Saline 500 MG in Premix Bag 1 BAG IV ONE (17:02)
[2018-12-30] MEDS ORDERED: Vancomycin 1 GM SDV ONE (17:32)
== END 2018-12-30 18:08 | disposition short-term general hospital (02) ==
LOC: VM.ED 13:28 → VM.MS 15:29 → UNDOADMIN 15:29 → UNDODISIN 18:08
DX: J18.1 Lobar pneumonia, unspecified organism (principal); R74.8 Abnormal levels of other serum enzymes; I25.2 Old myocardial infarction; I25.10 Atherosclerotic heart disease of native coronary artery without angina pectoris; F32.9 Major depressive disorder, single episode, unspecified; Z88.0 Allergy status to penicillin; Z88.8 Allergy status to other drugs, medicaments and biological substances; Z79.899 Other long term (current) drug therapy; Z79.82 Long term (current) use of aspirin
CPT/HCPCS: 36415; 71045; 80053; 83605; 83735; 83880; 84484; 85025; 86140; 87040; 96361; 96365; 96368; 96375; 99285; J0696; J1940; J3370; J3490; J7030; J7050